=== PATIENT | female | born 1995 | race Two or more races ===

== ENCOUNTER 2021-12-12 17:23 | Inpatient (IN) | payer SELFPAY ==
[~2021-12-12] VITALS: Ht 160 cm; Wt 77.5 kg
[~2021-12-12 17:23] MED LIST: IBUP-1027 PO
[2021-12-12] MEDS ORDERED: LIDOCAINE 1% PF 30 ML VIAL. INJ PRN (17:45)
[2021-12-12] MEDS ORDERED: IBUPROFEN 400 MG TABLET. PO PRN (17:45)
[2021-12-12] MEDS ORDERED: BUTORPHANOL 2 MG/ML VIAL. IVP PRN ×2 (17:45)
[2021-12-12] MEDS ORDERED: TERBUTALINE 1 MG/ML VIAL. SQ PRN (17:45)
[2021-12-12] MEDS ORDERED: 0.9 % SODIUM CHLORIDE 10 ML DISP.SYRIN. IV PRN ×2 (17:45→19:00)
[2021-12-12] MEDS ORDERED: OXYTOCIN 30 UNIT/500 ML PREMIX 500 ML IV PRN (17:45)
[2021-12-12] MEDS ORDERED: fentaNYL PF VIAL 100 MCG/2 ML VIAL IVP PRN ×2 (17:45)
[2021-12-12 18:02] LABS: BILIRUBIN,URINE NEGATIVE (NEG); CLARITY,URINE CLEAR; COLOR,URINE YELLOW; NITRITE,URINE NEGATIVE (NEG); PH,URINE 6.5 (<5.0-8.0); PROTEIN,URINE NEGATIVE (NEG-TRACE); UROBILINOGEN,URINE 0.2 mg/dL (0.2 mg/dL)
[2021-12-12 18:15] VITALS: BP 130/66
[2021-12-12 18:21] LABS: BACTERIA,URINE FEW /HPF (0-FEW); RBC,URINE 0 /HPF (0-2)
[2021-12-12 18:22] LABS: AMORPHOUS SEDIMENT,UR PRESENT /HPF
[2021-12-12] MEDS ORDERED: PREN-48 PO (18:25)
[2021-12-12] MEDS: IV RINGERS,LACTATED 1000ML 1,000 ML IV SCH (18:26)
[2021-12-12 18:29] LABS: BASO % 0 % (0-3); EOS # 0.1 x10^3/uL (0.0-0.7); EOS % 1 % (0-3); HEMATOCRIT 35.7 % (36.0-47.0); HEMOGLOBIN 11.6 g/dL (12.0-15.5); LYMPH # 1.5 x10^3/uL (1.0-4.8); LYMPH % 20 % (24-48); MEAN CORPUSCULAR HEMOGLOBIN 27 pg (25-35); MEAN CORPUSCULAR HGB CONC 33 g/dL (31-37); MEAN CORPUSCULAR VOLUME 83 fL (79-100); MONO # 0.6 x10^3/uL (0.0-1.1); MONO % 8 % (0-9); NEUT # 5.5 x10^3/uL (1.8-7.7); NEUT % 71 % (31-73); PLATELET COUNT 186 x10^3/uL (140-400); RED BLOOD COUNT 4.29 x10^6/uL (3.50-5.40); RED CELL DISTRIBUTION WIDTH 13.5 % (11.5-14.5); WHITE BLOOD COUNT 7.6 x10^3/uL (4.0-11.0)
[2021-12-12] MEDS ORDERED: OXYTOCIN PREMIX 30 UNIT/500 ML NS BAG. IV ONE (18:30)
[2021-12-12] MEDS ORDERED: HYDROCORTISONE 1% TOPICAL OINTMENT 30GM TUBE. TP PRN (19:00)
[2021-12-12] MEDS ORDERED: diphenhydrAMINE HCL 25 MG CAPSULE PO PRN (19:00)
[2021-12-12] MEDS ORDERED: MAGNESIUM HYDROXIDE 2,400 MG/30 ML ORAL.SUSP. PO PRN (19:00)
[2021-12-12] MEDS ORDERED: ACETAMINOPHEN 325 MG TABLET. PO PRN (19:00)
[2021-12-12] MEDS ORDERED: BENZOCAINE 20% TOPICAL AEROSOL SPRAY 57GM CAN. TP PRN (19:00)
[2021-12-12] MEDS ORDERED: SIMETHICONE 80 MG TAB.CHEW PO PRN (19:00)
[2021-12-12] MEDS ORDERED: MAG HYDROX/ALUMINUM HYD/SIMETH 30 ML ORAL.SUSP PO PRN (19:00)
[2021-12-12] MEDS ORDERED: PHENYLEPH/MINERAL OIL/PETROLAT RECTAL OINTMENT TUBE. RC PRN (19:00)
[2021-12-12] MEDS ORDERED: TDaP (BOOSTRIX) per PROTOCOL. MC PRN (19:00)
[2021-12-12] MEDS ORDERED: MMR per PROTOCOL. MC PRN (19:00)
--- NOTE | 2021-12-12 19:05 | PDOC1 ---
[facility] H&P Date of Admission: Date of Admission: Dec 12, 2021 at 17:23 History of Present Illness: [id number] presents at 39.3 weeks in spontaneous labor. SVE 8cm on arrival. has been uncomplicated. PMH unremarkable. Desires BTL. BT:O+, ab neg RI RPR NR Hep B/C Neg HIV Neg GCT 96 GBBS Neg No Covid Vax Flu 09/29 TDaP 09/29 Past Medical History: Cardiovascular: No pertinent hx Pulmonary: No pertinent hx GI: No pertinent hx Heme/Onc: No pertinent hx Hepatobiliary: No pertinent hx Psych: No pertinent hx Rheumatologic: No pertinent hx Infectious disease: No pertinent hx ENT: No pertinent hx Renal/: No pertinent hx Endocrine: No pertinent hx Dermatology: No pertinent hx Grav: 3 Para: 2 Social History: Smoke: No ALCOHOL: none Drugs: None Medications: Meds: Current Medications Medications (Trade) Dose Ordered Sig/Tello Route PRN Reason Start Time Stop Time Status Last Admin Dose Admin Ringer's Solution 1,000 ml @ 125 mls/hr Q8H IV 12/12/21 17:45 12/12/21 18:26 Allergies: Coded Allergies: No Known Drug Allergies (Unverified , 12/17/19) Physical Exam: Vital Signs: Vital Signs Date Time Temp Pulse Resp B/P (MAP) Pulse Ox O2 Delivery O2 Flow Rate FiO2 12/12/21 18:15 98.2 60 20 130/66 (87) Room Air 98.2 PE: GENERAL: No apparent distress. Alert and oriented. HEENT: Head normocephalic, atraumatic. NECK: Supple LUNGS: Clear to auscultation. HEART: RRR, S1, S2 present, pulses intact ABDOMEN: Soft, positive bowel sounds. EXTREMITIES: No cyanosis or edema. NEUROLOGIC: Normal speech, normal tone PSYCHIATRIC: Normal affect, normal mood. SKIN: No ulceration. Labs: Laboratory Tests Test 12/12/21 17:45 12/12/21 17:50 12/12/21 18:14 Urine Collection Type Unknown Urine Color Yellow Urine Clarity Clear Urine pH 6.5 (<5.0-8.0) Urine Specific [place] 1.010 (1.000-1.030) Urine Protein Negative mg/dL (NEG-TRACE) Urine Glucose (UA) Negative mg/dL (NEG) Urine Ketones (Stick) 40 mg/dL (NEG) Urine Blood Negative (NEG) Urine Nitrite Negative (NEG) Urine Bilirubin Negative (NEG) Urine Urobilinogen Dipstick 0.2 mg/dL (0.2 mg/dL) Urine Leukocyte Esterase Small (NEG) Urine RBC 0 /HPF (0-2) Urine WBC 5-10 /HPF (0-4) Urine Squamous Epithelial Cells Few /LPF Urine Amorphous Sediment Present /HPF Urine Bacteria Few /HPF (0-FEW) Urine Mucus Slight /LPF SARS-CoV-2 RNA (MAMIE) Negative (Negative) SARS-CoV-2 Antigen (Rapid) Negative (NEGATIVE) White Blood Count 7.6 x10^3/uL (4.0-11.0) Red Blood Count 4.29 x10^6/uL (3.50-5.40) Hemoglobin 11.6 g/dL (12.0-15.5) L Hematocrit 35.7 % (36.0-47.0) L Mean Corpuscular Volume 83 fL (79-100) Mean Corpuscular Hemoglobin 27 pg (25-35) Mean Corpuscular Hemoglobin Concent 33 g/dL (31-37) Red Cell Distribution Width 13.5 % (11.5-14.5) Platelet Count 186 x10^3/uL (140-400) Neutrophils (%) (Auto) 71 % (31-73) Lymphocytes (%) (Auto) 20 % (24-48) L Monocytes (%) (Auto) 8 % (0-9) Eosinophils (%) (Auto) 1 % (0-3) Basophils (%) (Auto) 0 % (0-3) Neutrophils # (Auto) 5.5 x10^3/uL (1.8-7.7) Lymphocytes # (Auto) 1.5 x10^3/uL (1.0-4.8) Monocytes # (Auto) 0.6 x10^3/uL (0.0-1.1) Eosinophils # (Auto) 0.1 x10^3/uL (0.0-0.7) Basophils # (Auto) 0.0 x10^3/uL (0.0-0.2) Laboratory Tests 12/12/21 18:14 Laboratory Tests 12/12/21 18:14 Assessment & Plan: Admit, Active Labor. Cat I FHT. Expectant management. Anticipate . 1. IUP @ 39.3 weeks 2. Active labor 3. GCT WNL 4. TDaP 09/29 5. Flu 09/29 6. No Covid Vaccine 7. GBS Neg 8. Cat I FHT MANSOOR MUNOZ CNM Dec 12, 2021 19:05
[2021-12-12] MEDS ORDERED: miSOPROStol 200 MCG TABLET. PR ONE (19:15)
--- NOTE | 2021-12-12 19:18 | PDOC4 ---
VAGINAL DELIVERY DATE DATE: 12/12/21 TIME: 19:16 TIME 1837 : 3 Para: 2 EDC: Dec 16, 2021 EGA: 39.3 VAGINAL DELIVERY: VTX VACCUM ASSISTED: No PLACENTA: Spontaneous 8/9 SEX: Male WEIGHT Weight [ ] Nuchal Cord: Yes ([place]ed through ), Times 2 Amniotic Fluid: Clear PAIN: Natural EPISIOTOMY: No EBL 300mL CONDITION Both mother and in stable condition, anticipate routine PP course. ADDITIONAL NOTES Intact perineum Signs of Intrauterine Infectio: None Shoulder Dystocia: No DIAGNOSIS MANSOOR MUNOZ CNM Dec 12, 2021 19:18
[2021-12-12] MEDS ORDERED: METHYLERGONOVINE MALEATE 0.2 MG/ML VIAL. IM ONE (21:45)
[2021-12-12 22:14] VITALS: BP 125/68
[2021-12-12 22:51] VITALS: BP 140/68
[2021-12-12 23:05] VITALS: BP 125/75
[2021-12-12 23:57] VITALS: BP 136/63
[2021-12-13] VITALS (13 sets, daily range): BP systolic 111–137; BP diastolic 65–83
[2021-12-13] MEDS: IV RINGERS,LACTATED 1000ML 1,000 ML IV SCH ×5 (01:45→17:45)
[2021-12-13] MEDS: IBUPROFEN 400 MG TABLET. PO PRN ×2 (03:34→20:03)
[2021-12-13 07:31] LABS: BASO % 0 % (0-3); EOS # 0.1 x10^3/uL (0.0-0.7); EOS % 1 % (0-3); HEMOGLOBIN 9.8 g/dL (12.0-15.5); LYMPH # 1.7 x10^3/uL (1.0-4.8); LYMPH % 16 % (24-48); MEAN CORPUSCULAR HEMOGLOBIN 27 pg (25-35); MEAN CORPUSCULAR HGB CONC 33 g/dL (31-37); MEAN CORPUSCULAR VOLUME 84 fL (79-100); MONO # 0.9 x10^3/uL (0.0-1.1); MONO % 8 % (0-9); NEUT # 7.8 x10^3/uL (1.8-7.7); NEUT % 74 % (31-73); PLATELET COUNT 169 x10^3/uL (140-400); RED BLOOD COUNT 3.57 x10^6/uL (3.50-5.40); RED CELL DISTRIBUTION WIDTH 13.6 % (11.5-14.5); WHITE BLOOD COUNT 10.5 x10^3/uL (4.0-11.0)
[2021-12-13] MEDS: FERROUS SULFATE 325 MG TABLET. PO SCH ×2 (08:00→17:00)
[2021-12-13] MEDS: MULTIVITAMIN with MINERAL TABLET. PO SCH (09:00)
--- NOTE | 2021-12-13 10:09 | PDOC ---
SENIOR CONTROLS ANALYST PROGRESS NOTE Date of Service: DATE: 12/13/21 TIME: 10:06 Subjective: Mechanical Systems Designer assistance provided by DOOMORO. Doing well. Pain well managed with PO meds. Tolerates activity, diet, and voiding without difficulty. Mild low back discomfort. Otherwise denies complaints. Objective: Objective: FF @ U, Scant lochia. Abdomen soft, NTTP. No edema. Vital Signs: Vital Signs Date Time Temp Pulse Resp B/P (MAP) Pulse Ox O2 Delivery O2 Flow Rate FiO2 12/12/21 18:15 98.2 60 20 130/66 (87) Room Air 98.2 12/12/21 22:51 100 Vital Signs Date Time Temp Pulse Resp B/P (MAP) Pulse Ox O2 Delivery O2 Flow Rate FiO2 12/13/21 07:55 98.2 66 16 121/73 (89) 100 Room Air 98.2 Labs: Laboratory Tests Test 12/12/21 17:45 12/12/21 17:50 12/12/21 18:14 12/13/21 05:50 Urine Collection Type Unknown Urine Color Yellow Urine Clarity Clear Urine pH 6.5 (<5.0-8.0) Urine Specific [place] 1.010 (1.000-1.030) Urine Protein Negative mg/dL (NEG-TRACE) Urine Glucose (UA) Negative mg/dL (NEG) Urine Ketones (Stick) 40 mg/dL (NEG) Urine Blood Negative (NEG) Urine Nitrite Negative (NEG) Urine Bilirubin Negative (NEG) Urine Urobilinogen Dipstick 0.2 mg/dL (0.2 mg/dL) Urine Leukocyte Esterase Small (NEG) Urine RBC 0 /HPF (0-2) Urine WBC 5-10 /HPF (0-4) Urine Squamous Epithelial Cells Few /LPF Urine Amorphous Sediment Present /HPF Urine Bacteria Few /HPF (0-FEW) Urine Mucus Slight /LPF SARS-CoV-2 RNA (MAMIE) Negative (Negative) SARS-CoV-2 Antigen (Rapid) Negative (NEGATIVE) White Blood Count 7.6 x10^3/uL (4.0-11.0) 10.5 x10^3/uL (4.0-11.0) Red Blood Count 4.29 x10^6/uL (3.50-5.40) 3.57 x10^6/uL (3.50-5.40) Hemoglobin 11.6 g/dL (12.0-15.5) L 9.8 g/dL (12.0-15.5) L Hematocrit 35.7 % (36.0-47.0) L 30.0 % (36.0-47.0) L Mean Corpuscular Volume 83 fL (79-100) 84 fL (79-100) Mean Corpuscular Hemoglobin 27 pg (25-35) 27 pg (25-35) Mean Corpuscular Hemoglobin Concent 33 g/dL (31-37) 33 g/dL (31-37) Red Cell Distribution Width 13.5 % (11.5-14.5) 13.6 % (11.5-14.5) Platelet Count 186 x10^3/uL (140-400) 169 x10^3/uL (140-400) Neutrophils (%) (Auto) 71 % (31-73) 74 % (31-73) H Lymphocytes (%) (Auto) 20 % (24-48) L 16 % (24-48) L Monocytes (%) (Auto) 8 % (0-9) 8 % (0-9) Eosinophils (%) (Auto) 1 % (0-3) 1 % (0-3) Basophils (%) (Auto) 0 % (0-3) 0 % (0-3) Neutrophils # (Auto) 5.5 x10^3/uL (1.8-7.7) 7.8 x10^3/uL (1.8-7.7) H Lymphocytes # (Auto) 1.5 x10^3/uL (1.0-4.8) 1.7 x10^3/uL (1.0-4.8) Monocytes # (Auto) 0.6 x10^3/uL (0.0-1.1) 0.9 x10^3/uL (0.0-1.1) Eosinophils # (Auto) 0.1 x10^3/uL (0.0-0.7) 0.1 x10^3/uL (0.0-0.7) Basophils # (Auto) 0.0 x10^3/uL (0.0-0.2) 0.0 x10^3/uL (0.0-0.2) Treponema pallidum Antibody Nonreactive (Nonreactive) Laboratory Tests 12/12/21 18:14 12/13/21 05:50 Laboratory Tests 12/13/21 05:50 Physical Exam: GENERAL: No apparent distress. Alert and oriented. HEENT: Head normocephalic, atraumatic. NECK: Supple LUNGS: Clear to auscultation. HEART: RRR, S1, S2 present, pulses intact ABDOMEN: Soft, positive bowel sounds. EXTREMITIES: No cyanosis or edema. NEUROLOGIC: Normal speech, normal tone PSYCHIATRIC: Normal affect, normal mood. SKIN: No ulceration. Assessment & Plan: Routine PP care. BTL today. Anticipate d/c home tomorrow. MANSOOR MUNOZ CNM Dec 13, 2021 10:09
[2021-12-13] MEDS ORDERED: PROCHLORPERAZINE 10 MG/2 ML VIAL. IVP PRN (10:30)
[2021-12-13] MEDS ORDERED: HYDROmorphone 2 MG/ML INJ. IVP PRN (10:30)
[2021-12-13] MEDS ORDERED: fentaNYL PF VIAL 100 MCG/2 ML VIAL IVP PRN ×2 (10:30)
[2021-12-13] MEDS ORDERED: ROCURONIUM 50 MG/5 ML VIAL. ONE (11:22)
[2021-12-13] MEDS ORDERED: fentaNYL PF VIAL 100 MCG/2 ML VIAL ONE (11:22)
[2021-12-13] MEDS ORDERED: ACETAMINOPHEN 650 MG SUPP.RECT. PR ONE (11:30)
[2021-12-13] MEDS ORDERED: LIDOCAINE 2% PF 5 ML VIAL. ONE (11:56)
[2021-12-13] MEDS ORDERED: DEXAMETHASONE SOD PHOS 4 MG/ML VIAL ONE (11:56)
[2021-12-13] MEDS ORDERED: PROPOFOL 50 ML IV ONE (11:56)
[2021-12-13] MEDS ORDERED: KETOROLAC 30 MG/ML VIAL. ONE (11:56)
[2021-12-13] MEDS ORDERED: PROPOFOL 10 MG/ML (20ML) VIAL. IV ONE (11:56)
[2021-12-13] MEDS ORDERED: SUGAMMADEX SODIUM 200 MG/2 ML VIAL. IVP ONE (12:00)
[2021-12-13] MEDS ORDERED: MORPHINE SULFATE 2 MG/ML INJ. ONE ×2 (12:41→13:18)
[2021-12-13] MEDS ORDERED: PROCHLORPERAZINE 10 MG/2 ML VIAL. ONE (12:41)
[2021-12-13] MEDS: MORPHINE SULFATE 2 MG/ML INJ. IVP PRN ×4 (12:49→13:34)
--- NOTE | 2021-12-13 12:52 | PDOC4 ---
OPERATIVE NOTE: PreOp Dx: 1.) DPS, 2.) Multiparity PostOp Dx: same Procedure: PPBTL Surgeon: Ana Zayas Anesthesia: GETA EBL: 15 cc Fluids: 800 cc Findings: nml tubes and ovary Complications: none Pathology: bilateral tubal segments SCOTT ZAYAS MD Dec 13, 2021 12:52
--- NOTE | 2021-12-13 13:37 | OP ---
DATE OF SURGERY: 12/13/2021 PREOPERATIVE DIAGNOSES: 1. Desires permanent sterilization. 2. Multiparity. POSTOPERATIVE DIAGNOSES: 1. Desires permanent sterilization. 2. Multiparity. PROCEDURE: bilateral tubal ligation. SURGEON: Yfn Waldrop MD ANESTHESIA: General endotracheal intubation. ESTIMATED BLOOD LOSS: 15 mL. FLUIDS: 800 mL FINDINGS: Normal tubes and ovaries. COMPLICATIONS: None. PATHOLOGY: Bilateral tubal segments. DESCRIPTION OF PROCEDURE: The patient was taken to the operating room where general endotracheal intubation was obtained without difficulty. The patient was prepped and draped in normal sterile fashion. A small transverse infraumbilical skin incision was made with a scalpel. The incision was then carried down to the underlying layer of fascia. The fascia was then nicked in the midline and the fascial incision was extended with Black scissors. At that point, the peritoneum was identified and grasped and entered sharply with Metzenbaum scissors. The right tube was then identified and followed out to the fimbria. The Laxmi clamp was used to grasp the tube approximately 3 cm from the cornual region. A 4 cm segment of the tube was then ligated first by placing a free tie of 0 gut and then placing a second tie just superior to this one. Tube was then excised superiorly to the second tie. The tube was then sent to pathology. The tubal segment was made hemostatic with the Bovie. Attention was then turned to the left tube, which was followed out to the fimbria. The tube was then grasped approximately 3 cm from the cornual region. A 4 cm segment of the tube was then excised in similar fashion, first by placing 2 free ties of 0 plain gut one superior to the other and then excising superiorly to the second tie with Metzenbaum scissors. The edges again were made hemostatic with the Bovie. At this point, the tube was returned back to the abdomen. The fascia was then closed with 0 Vicryl in a running fashion. The subcutaneous space was closed with a single 2-0 Vicryl and the skin was then closed with a 3-0 Monocryl in a subcuticular manner. The patient tolerated the procedure well. Sponges, laps and needles were correct x 2. The patient was taken to recovery room in stable condition. JESE DR: Virgilio TID: [id number]
[2021-12-13] MEDS: oxyCODONE/APAP 5/325 1 TAB TABLET PO PRN ×2 (15:29→22:50)
[2021-12-13] MEDS: DOCUSATE SODIUM 100 MG CAPSULE. PO PRN (15:29)
[2021-12-14] MEDS: IV RINGERS,LACTATED 1000ML 1,000 ML IV SCH ×2 (01:45→09:45)
[2021-12-14 04:59] VITALS: BP 95/53
[2021-12-14 05:00] LABS: BASO % 0 % (0-3); EOS # 0.1 x10^3/uL (0.0-0.7); EOS % 1 % (0-3); HEMATOCRIT 31.9 % (36.0-47.0); HEMOGLOBIN 10.4 g/dL (12.0-15.5); LYMPH # 2.2 x10^3/uL (1.0-4.8); LYMPH % 24 % (24-48); MEAN CORPUSCULAR HEMOGLOBIN 27 pg (25-35); MEAN CORPUSCULAR HGB CONC 33 g/dL (31-37); MEAN CORPUSCULAR VOLUME 84 fL (79-100); MONO # 0.9 x10^3/uL (0.0-1.1); MONO % 10 % (0-9); NEUT # 5.9 x10^3/uL (1.8-7.7); NEUT % 65 % (31-73); PLATELET COUNT 236 x10^3/uL (140-400); RED BLOOD COUNT 3.81 x10^6/uL (3.50-5.40); RED CELL DISTRIBUTION WIDTH 13.6 % (11.5-14.5); WHITE BLOOD COUNT 9.2 x10^3/uL (4.0-11.0)
[2021-12-14] MEDS: oxyCODONE/APAP 5/325 1 TAB TABLET PO PRN (05:05)
[2021-12-14] MEDS: FERROUS SULFATE 325 MG TABLET. PO SCH (08:00)
[2021-12-14 08:44] VITALS: BP 109/69
[2021-12-14] MEDS ORDERED: IBUP-1027 PO (10:12)
[2021-12-14] MEDS ORDERED: FERR325T72 PO (10:12)
[2021-12-14] MEDS ORDERED: DOCU-109 PO (10:12)
[2021-12-14] MEDS ORDERED: OXYC1TAB15 PO (10:12)
[2021-12-14] MEDS: IBUPROFEN 400 MG TABLET. PO PRN (11:05)
[2021-12-14] MEDS: DOCUSATE SODIUM 100 MG CAPSULE. PO PRN (11:05)
[2021-12-14] MEDS: MULTIVITAMIN with MINERAL TABLET. PO SCH (11:05)
[2021-12-14 13:30] VITALS: BP 95/54
--- NOTE | 2021-12-14 13:50 | NUR ---
Discharge Note: KAITY WOLFF3 SO LND Discharge instructions and discharge home medications reviewed with Patient and a copy given. All questions have been answered and understanding verbalized. The following instructions and handouts were given: Discharge Instructions Post Patients Well Paper Control Clerk - Depression and Baby Blues Care After Vaginal Delivery Tubal Ligation, Care After Docusato - oral Deya, Suplemento - oral Ibuprofeno - oral Oxicodona/Acetaminofeno - oral Patient discharged to home with self-care via ambulation to private vehicle. Pt. walked with steady gait. All personal belongings and discharge instructions sent with pt. Discharge instructions reviewed via aircraft armament mechanic phone ID#[id number].
== END 2021-12-14 13:50 | disposition home or self-care (01) | DRG 798 ==
LOC: 3 SO LND 17:23 → OBSVTOIN 17:23 → 3 SO LND 12-13 05:00
PROVIDERS: ADMIT Obstetrics & Gynecology; ATTEND Obstetrics & Gynecology
PROC: 10E0XZZ Delivery of Products of Conception, External Approach (ICD-10-PCS; principal; 2021-12-12)
PROC: 0UB70ZZ Excision of Bilateral Fallopian Tubes, Open Approach (ICD-10-PCS; 2021-12-12)
DX: O69.81X0 Labor and delivery complicated by cord around neck, without compression, not applicable or unspecified (principal); Z37.0 Single live birth; Z30.2 Encounter for sterilization; Z3A.39 39 weeks gestation of pregnancy; Z20.822 Contact with and (suspected) exposure to COVID-19
CPT/HCPCS: 36415; 81001; 85025; 86592; 86850; 86900; 86901; 87086; 87426; A4364; A4452; A4930; A6219; A6402; J0780; J1100; J1885; J2210; J2270; J2590; J2704; J3010; J3490; J7120; U0003; U0005; G0378; Q0163